=== PATIENT | female | born 1940 | race Caucasian/White ===

== ENCOUNTER → 2021-01-12 | Day surgery (SDC) | payer MEDICARE, OTHER ==
[~2021-01-12] VITALS: Ht 154.9 cm; Wt 88.2 kg
[~2021-01-12] MED LIST: ALBU2.5V8 IH; AMLO-186 PO; ASPI-630 PO; CARB100C4 PO; ENAL20TA10 PO; GABA600T7 PO; GLIP10TA13 PO; IV RINGERS,LACTATED 1000ML 1,000 ML IV SCH; LIDOCAINE 2% PF 5 ML VIAL. ONE; LOVA40TA2 PO; METF10007 PO; METO25TA2 PO; METR70GE14 VG; POTA8CAP19 PO; PROPOFOL 10 MG/ML (20ML) VIAL. IV ONE; TRAM50TA PO; TRAZ150T49 PO
[2021-01-12 08:16] VITALS: BP 160/72
--- NOTE | 2021-01-12 09:04 | HP ---
ADMIT DATE: 01/12/2021 REASON: Dysphagia and history of polyps. HISTORY OF PRESENT ILLNESS: An 81-year-old female is seen with anemia with a hemoglobin of 11.5. She has had persistent left lower quadrant abdominal pain with loose mushy stools. Prior history of polyps in 2003 was noted. Her weight is stable despite decreased appetite and she has also noted solid food dysphagia in substernal location. Continued issues. She requests additional evaluation. PAST MEDICAL HISTORY: Hypertension, hyperlipidemia, diabetes. ALLERGIES: METOCLOPRAMIDE. MEDICATIONS: Include albuterol, amlodipine, aspirin, carbamazepine, enalapril, gabapentin, glipizide, lovastatin, metformin, metoprolol, potassium, tramadol and trazodone. FAMILY HISTORY: Significant for diabetes, [place], ovarian cancer, pancreatic cancer in grandfather, CVA with mother and grandmother. SOCIAL HISTORY: She is a nonsmoker and nondrinker. PAST SURGICAL HISTORY: Eye surgery, tonsillectomy. REVIEW OF SYSTEMS: Per records. PHYSICAL EXAMINATION: GENERAL: Reveals a well-nourished, well-developed female, who is alert, cooperative, in no acute distress. VITAL SIGNS: Temperature is 97.5, pulse 70, respiratory rate 20. LUNGS: Clear. CARDIOVASCULAR: Reveals S1, S2, without S3, S4 or appreciable murmur. ABDOMEN: Reveals a soft abdomen, normal bowel sounds, without appreciable hepatosplenomegaly. EXTREMITIES: Reveals no cyanosis, clubbing or edema. IMPRESSION: 1. 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 Ervin's, achalasia and eosinophilic esophagitis are in the differential. Recommend EGD with possible biopsy and dilatation. 2. Anemia with history of colonic polyps. Recurrent polyps, cancer, AVMs and IBD are in the differential. Recommend colonoscopy. Risks and benefits discussed. The patient is willing to proceed. TIESHA DR: Alis TID: [id number]
[2021-01-12 09:30] VITALS: BP 165/58
== END | disposition home or self-care (01) ==
LOC: ENDOS 07:40
PROVIDERS: ATTEND Internal Medicine Gastroenterology
DX: D50.9 Iron deficiency anemia, unspecified (principal); R13.10 Dysphagia, unspecified; K57.30 Diverticulosis of large intestine without perforation or abscess without bleeding; K63.5 Polyp of colon; K64.0 First degree hemorrhoids; K63.89 Other specified diseases of intestine; K31.89 Other diseases of stomach and duodenum; I10 Essential (primary) hypertension; E11.9 Type 2 diabetes mellitus without complications; E78.00 Pure hypercholesterolemia, unspecified; G47.30 Sleep apnea, unspecified; E66.9 Obesity, unspecified; K21.9 Gastro-esophageal reflux disease without esophagitis; M19.90 Unspecified osteoarthritis, unspecified site; J45.909 Unspecified asthma, uncomplicated; Z86.010 Personal history of colon polyps; Z87.891 Personal history of nicotine dependence; Z79.82 Long term (current) use of aspirin; Z79.84 Long term (current) use of oral hypoglycemic drugs; Z79.899 Other long term (current) drug therapy; Z98.890 Other specified postprocedural states; Z88.8 Allergy status to other drugs, medicaments and biological substances; Z82.49 Family history of ischemic heart disease and other diseases of the circulatory system; Z83.3 Family history of diabetes mellitus
CPT/HCPCS: 43235; 43450; 45385; 88305; J2704; 45380